=== PATIENT | female | born 1940 | race Caucasian/White ===

== ENCOUNTER 2017-01-10 12:36 | Emergency (ER) | payer OTHER, MEDICARE ==
[~2017-01-10] VITALS: Ht 172.7 cm; Wt 68.0 kg
[~2017-01-10 12:36] MED LIST: ADVAIR 250-501 EACH IH; ALEVE220 M1 PO; ALEVE220 MG; ALLEGRA ALLERGY60 MG PO; ALLEGRA60 MG PO; ANASPAZ0.125 MG SUBLING; ASPIRIN EC81 M1 PO; AVELOX400 MG PO; B12INJ SUBQ; BACTROBAN15 GM TP; CIPRO500 MG PO; CIPROFLOXACIN500 M1 PO; CIPROFLOXACIN500 M3 PO; COLACE100 MG PO; D3 DOTS2000 UNIT PO; DOXYCYCLINE 10100 MG PO; ESTROPIPATE0.75 MG PO; FLAGYL500 MG PO; FLEXERIL PO; FUROSEMIDE 20 M20 MG PO; GABADONE CAPSU1 EACH PO; GABAPENTIN; HIGH BLOOD PRESSURE; HORMONE; LEVOTHYROXIN0.137 M1 PO; LISINOPRIL20 MG PO; MEDROL DOSPAK21 TA1 PO; MEDROL DOSPAK21 TAB PO; METFORMIN HCL500 MG PO; MIRALAX17 GM PO; NEURONTIN 300300 M1 PO; NORCO 5-325 TA1 EACH PO; PREDNISOLONE 5 M5 M1 PO; PREDNISONE 20 M20 MG PO; PRESERVISION A1 EAC2 PO; SYMBICORT80 MCG/4.1 INH; SYNTHROID112 MCG PO; TRAMADOL 50 MG50 MG PO; TUSSIONEX PENNKI1 ML PO; TYLENOL325 MG PO; ZOFRAN ODT4 MG PO; ZOFRAN4 MG PO; ZPAK PO
[2017-01-10 12:44] VITALS: BP 150/77
[2017-01-10] MEDS ORDERED: ALLOPURINOL 10100 M1 PO (12:55)
[2017-01-10] MEDS ORDERED: GLIMEPIRIDE1 MG PO (12:55)
[2017-01-10] MEDS ORDERED: LIPITOR10 MG PO (12:56)
[2017-01-10] MEDS ORDERED: PROVENTIL HFA6.7 G1 INH (13:39)
[2017-01-10] MEDS ORDERED: TUSSIONEX PENN473 ML PO (13:39)
== END 2017-01-10 14:04 | disposition home or self-care (01) ==
LOC: ER 12:36
DX: J32.8 Other chronic sinusitis (principal); J06.9 Acute upper respiratory infection, unspecified; Z98.890 Other specified postprocedural states; Z90.710 Acquired absence of both cervix and uterus; Z96.653 Presence of artificial knee joint, bilateral; J45.909 Unspecified asthma, uncomplicated; I10 Essential (primary) hypertension; Z87.442 Personal history of urinary calculi; Z90.49 Acquired absence of other specified parts of digestive tract; Z88.8 Allergy status to other drugs, medicaments and biological substances; Z88.5 Allergy status to narcotic agent; Z88.0 Allergy status to penicillin

== ENCOUNTER 2017-04-20 14:40 | Emergency (ER) | payer OTHER, MEDICARE ==
[~2017-04-20] VITALS: Ht 152.4 cm; Wt 72.6 kg
[~2017-04-20 14:40] MED LIST changes: +ALLOPURINOL 10100 M1 PO; +GLIMEPIRIDE1 MG PO; +LIPITOR10 MG PO; +PROVENTIL HFA6.7 G1 INH; +TUSSIONEX PENN473 ML PO
[2017-04-20] MEDS ORDERED: VITAMIN E400 UNIT PO (15:51)
[2017-04-20] MEDS ORDERED: NORFLEX100 MG PO (16:34)
[2017-04-20] MEDS ORDERED: HYDROCODONE-AP1 EAC6 PO (16:34)
[2017-04-20 17:07] VITALS: BP 148/58
== END 2017-04-20 17:19 | disposition home or self-care (01) ==
LOC: ER 14:40
DX: S49.91XA Unspecified injury of right shoulder and upper arm, initial encounter (principal); I10 Essential (primary) hypertension; J45.909 Unspecified asthma, uncomplicated; Z90.710 Acquired absence of both cervix and uterus; Z87.442 Personal history of urinary calculi; Z98.890 Other specified postprocedural states; Z96.653 Presence of artificial knee joint, bilateral; Z88.0 Allergy status to penicillin; Z88.5 Allergy status to narcotic agent; Z88.8 Allergy status to other drugs, medicaments and biological substances; W18.49XA Other slipping, tripping and stumbling without falling, initial encounter; Y93.89 Activity, other specified; Y92.89 Other specified places as the place of occurrence of the external cause; Y99.8 Other external cause status

== ENCOUNTER → 2017-10-25 | Outpatient (CLI) | payer OTHER ==
[~2017-10-25] VITALS: Ht 152.4 cm; Wt 80.7 kg
[~2017-10-25] MED LIST changes: +CENTRUM SILVER1 EAC4 PO; +HYDROCODONE-AP1 EAC6 PO; +NORFLEX100 MG PO; +TUMS PO; +VITAMIN E400 UNIT PO
[2017-10-25 09:41] VITALS: BP 190/87
[2017-10-25 11:34] LABS: ALBUMIN 3.8 g/dL (3.4-5.0); ANION GAP 8 mmol/L (7-16); BUN 13 mg/dL (7-18); CALCIUM 9.6 mg/dL (8.5-10.1); CHLORIDE 105 mmol/L (98-107); CHOLESTEROL 117 mg/dL (<200); CO2 28 mmol/L (21-32); CREATININE 1.1 mg/dL (0.6-1.0); GLUCOSE 133 mg/dL (74-106); HDL CHOLESTEROL 46 mg/dL (>40); LDL CHOLESTEROL 49 mg/dL (<100); MAGNESIUM 1.2 mg/dL (1.8-2.4); POTASSIUM 3.7 mmol/L (3.5-5.1); SGOT 20 U/L (15-37); SGPT 27 U/L (30-65); SODIUM 141 mmol/L (136-145); TC:HDL 2.5 Ratio (Not establshd); TOTAL BILIRUBIN 0.3 mg/dL (<0.1-1.0); TOTAL PROTEIN 7.3 g/dL (6.4-8.2); TRIGLYCERIDE 114 mg/dL (<150); VLDL 23 mg/dL (<40)
[2017-10-25 12:08] LABS: TSH 2.97 uIU/mL (0.358-3.740)
[2017-10-26 02:09] LABS: GLYCOHEMOGLOBIN (HGB A1C) 7.3 % (4.8-5.6)
== END ==
LOC: SEN 09:02
PROVIDERS: Registered Nurse
DX: I12.9 Hypertensive chronic kidney disease with stage 1 through stage 4 chronic kidney disease, or unspecified chronic kidney disease (principal); E11.9 Type 2 diabetes mellitus without complications; N18.9 Chronic kidney disease, unspecified; E03.9 Hypothyroidism, unspecified; E78.5 Hyperlipidemia, unspecified

== ENCOUNTER 2018-08-13 08:47 | Inpatient (IN) | payer OTHER ==
[~2018-08-13] VITALS: Ht 152.4 cm; Wt 78.5 kg
--- NOTE | ~2018-08-13 | HC ---
[facility] [place] [address] [place] [address] CONSULTATION Name: CORIE GOLDMAN Room #: 221-P ADM IN M.R.#: [id number] Admission: 08/13/18 Attend Phys: Edilberto Herring MD Discharge: Date of : 36 Report #: [id number] THIS REPORT FOR: //name// CC: Edilberto Guardado ENDOCRINE CONSULTATION Patient of Dr. Daisy Guardado. ATTENDING PHYSICIAN: Edilberto Herring MD This dictation will be done in a problem-oriented fashion. SUBJECTIVE: A 77-year-old white female with a variety of medical problems, admitted for confusion and as the patient states her family thought she may have suffered a stroke and the patient has a variety of medical conditions, specifically she has a long history of hypothyroidism. She does not remember how long she has had this disorder or anything to do with her therapy. She readily admits, however, that she has not taken her thyroid replacement for many weeks and possibly many months. She offers no explanation for why this has not been taken. It apparently has not been followed up with thyroid function studies at her PCP's office, but was detected upon evaluation in the Emergency Department. Otherwise, there is no pertinent thyroid history available at this time. OBJECTIVE: LABORATORY DATA: As per chart. TSH 140. Free T4 is pending, which will certainly also indicate significant hypothyroidism when that result is available. PHYSICAL EXAMINATION: A thin 77-year-old white female, in no acute distress. The patient is alert and oriented x 3. She is able to answer some but limited medical questions. She is afebrile, heart rate 70 and regular, blood pressure 160/90. Skin is warm and moist and slightly doughy. The thyroid is difficult to palpate, but appears within normal limits. Deep tendon reflexes show slight depression bilaterally. The remainder of the exam is euthyroid. ASSESSMENT: Hypothyroidism of unknown etiology. The patient has significant laboratory abnormalities obviously due to the fact that she has not taken her thyroid replacement for an extended period of time. In addition, the patient does ingest calcium carbonate in the form of Tums on a p.r.n. basis and may have altered her thyroid hormone absorption by taking these within 2 hours before or after her thyroid hormone administration. This is, however, an extremely limited effect compared to the total absence of replacement. [address] [address] CONSULTATION Name: CORIE GOLDMAN Room #: 221-P [facility] IN M.R.#: [id number] Admission: 08/13/18 Attend Phys: Edilberto Herring MD Discharge: Date of : 36 Report #: [id number] PLAN: 1. I have discussed all the above with the patient and reviewed how important it is to take appropriate dose of replacement daily separate from calcium, iron, vitamins, etc., or other conflicting substances. It will be 6 weeks before thyroid function can be reassessed accurately and appropriately and dosage readjusted if needed at that time. 2. I have discussed with the patient appropriate followup to make sure that a thyroid hormone is initiated on a consistent basis and is not again inappropriately deleted. Thank you very much for this consultation. I will continue to follow the patient with you for evaluation and management of thyroid disease. <ELECTRONICALLY SIGNED> By: Manuel Serrano MD 08/15/18 1141 [id number] Manuel Serrano MD /nt
--- NOTE | ~2018-08-13 | HC ---
[facility] [address] [place] [address] CONSULTATION Name: CORIE GOLDMAN Room #: 221-P ADM IN M.R.#: [id number] Admission: 08/13/18 Attend Phys: Edilberto Herring MD Discharge: Date of : 36 Report #: [id number] THIS REPORT FOR: //name// CC: Edilberto Guardado DATE OF SERVICE: 08/14/2018 HISTORY OF PRESENT ILLNESS: The patient is a 77-year-old white female with a prior history of hypertension, hyperlipidemia, diabetes mellitus, COPD, hypothyroidism, fibromyalgia, recent diagnosis of lichen planus presented to [facility] Emergency Department with multiple complaints of confusion, weakness, slurred speech. She had been at her Dermatology office for biopsies. She was admitted with the confusion. CT of the head was negative, was noted to have a urinary tract infection, continuing with Rocephin. Follow sensitivities and cultures. She also had some hypokalemia 3.2, being supplemented. She has hypertension. We are seeing her in rehabilitation medicine consultation. Geriatric has been involved as well. PAST MEDICAL HISTORY: As noted above. ALLERGIES: Multiple including ALPRAZOLAM, MEPERIDINE, MORPHINE, PENICILLIN, THEOPHYLLINE. SOCIAL HISTORY: Premorbidly ambulated without assistive devices, but did furniture walk. She lives in her own home, still drives a car. No recent auto accidents were noted, was able to complete ADLs independently. Denied any recent falls at home. MEDICATIONS: Please see the full medication listing. This is noted to have include vitamins, herbals, and supplements. HABITS: Nonsmoker, no history of alcohol abuse. Lives with spouse. Please see the above. PAST MEDICAL HISTORY: Includes as well heart disease, hypertension, lung disease, autoimmune disorder as noted above. REVIEW OF SYSTEMS: No current complaints of chest pain, shortness of breath or abdominal discomfort. PHYSICAL EXAMINATION: GENERAL: A 77-year-old white female, pleasant, in no obvious distress. VITAL SIGNS: Last recorded temperature 97.2, pulse 70, respirations 17, blood pressure 162/90. EXTREMITIES: Functional range of motion of the upper and lower extremities. [address] [address] CONSULTATION Name: CORIE GOLDMAN Room #: 221-P [facility] IN ..#: [id number] Admission: 08/13/18 Attend Phys: Edilberto Herring MD Discharge: Date of : 36 Report #: [id number] Strength is a grade 3+ to 4-/5. DTRs are trace to 1. She does need some cues. She is able to get up with the walker, needing close standby assistance for short distance ambulation into the bathroom. Therapy evaluations are continuing. ASSESSMENT: A 77-year-old white female with the following problem list: 1. Acute mental status changes, apparently secondary to urinary tract infection. 2. Hypokalemia. 3. Urinary tract infection. 4. Acute renal insufficiency. 5. Electrolyte abnormalities. 6. Hypertension. 7. Diabetes mellitus. 8. Chronic obstructive pulmonary disease. 9. History of fibromyalgia. 10. Coronary artery disease. 11. Bladder prolapse. PLAN: Therapy evaluations are continuing. It is my understanding that the patient has in a transplant for which our re[facility] is out of network. Case management will need to assist and at this point would need to look at other rehab/therapy options as she further medically stabilizes. We will be glad to follow along with you. By: 1331 0035 Manuel Fields MD /PMT
--- NOTE | ~2018-08-13 | EKG ---
[place] [address] [facility] [place] [address] ELECTROCARDIOGRAM REPORT Name: CORIE GOLDMAN Room #: [facility]#: [id number] Admission: 08/13/18 Attend Phys: Discharge: Date of : 36 Report #: [id number] THIS REPORT FOR: //name// [facility] ED Test Date: 2018-08-13 Test Time: 09:19:08 Pat Name: CORIE GOLDMAN Department: Room: Gender: F Manager Financial: : 1940 Requested By: Geeta Schmidt Order Number: [id number] MD: Piter Ferrell Measurements Intervals [place] Rate: 83 P: 62 MD: 212 QRS: 15 QRSD: 116 T: 27 QT: 378 QTc: 445 Interpretive Statements Sinus rhythm Ventricular premature complex Nonspecific intraventricular conduction delay Low voltage, precordial leads Compared to ECG 12/24/2012 13:44:06 Electronically Signed On 08-13-2018 11:16:48 ALUMINUM SIDING INSTALLER by Piter Ferrell [email or web address] <ELECTRONICALLY SIGNED> By: Piter Ferrell MD 08/13/18 1116 D: [id number] 8 Piter Ferrell MD /MARICEL
[2018-08-13 08:48] VITALS: BP 174/90
[2018-08-13 09:33] LABS: ABSOLUTE NEUTROPHILS 6.5 thou/uL (1.4-8.2); BASOPHILS 1.1 % (0.0-2.0); EOSINOPHILS 3.1 % (0.0-3.0); HEMATOCRIT 42.5 % (37.0-47.0); HEMOGLOBIN 14.6 gm/dL (12.0-15.0); LYMPHOCYTES 21.9 % (24.0-44.0); MCH 32.5 pg (26.0-34.0); MCHC 34.4 g/dL (28.0-37.0); MCV 94.2 fL (80.0-100.0); PLATELET COUNT 261 thou/uL (150-400); POLYS 67.9 % (36.0-66.0); RBC 4.51 mil/uL (4.20-5.00); RDW 12.9 % (10.5-14.5); WBC 9.6 thou/uL (4.0-11.0)
[2018-08-13 09:50] LABS: ANION GAP 11 mmol/L (7-16); BUN 23 mg/dL (7-18); CALCIUM 10.6 mg/dL (8.5-10.1); CHLORIDE 100 mmol/L (98-107); CO2 27 mmol/L (21-32); CREATININE 1.6 mg/dL (0.6-1.0); GLUCOSE 165 mg/dL (74-106); POTASSIUM 3.2 mmol/L (3.5-5.1); SODIUM 138 mmol/L (136-145)
[2018-08-13 10:04] LABS: ALBUMIN 4.3 g/dL (3.4-5.0); SGOT 57 U/L (15-37); SGPT 48 U/L (30-65); TOTAL BILIRUBIN 0.3 mg/dL (<0.1-1.0); TOTAL PROTEIN 8.3 g/dL (6.4-8.2); TROPONIN-I <0.06 ng/mL (<0.06)
[2018-08-13 10:19] LABS: URINE BILIRUBIN NEGATIVE (Negative); URINE BLOOD TRACE (Negative); URINE CLARITY CLEAR; URINE COLOR YELLOW; URINE GLUCOSE-RANDOM* NEGATIVE (Negative); URINE KETONES NEGATIVE (Negative); URINE NITRITE-REFLEX NEGATIVE (Negative); URINE PROTEIN (DIPSTICK) NEGATIVE (Negative); URINE SPECIFIC GRAVITY 1.015 (1.005-1.035); URINE UROBILINOGEN 0.2 E.U./dl (0.2-1.0)
[2018-08-13 10:26] LABS: URINE LEUKOCYTES-REFLEX 2+ (Negative)
[2018-08-13 10:51] LABS: CASTS None Seen /LPF (None Seen); CRYSTALS None Seen /LPF (None Seen); SQUAMOUS 4-10 Moderate /LPF (0-3); URINE RBC 0-2 Rare /HPF (0-2)
[2018-08-13] MEDS ORDERED: DIFLUCAN200 MG PO (11:19)
[2018-08-13] MEDS ORDERED: LOSARTAN POTASS50 MG PO (11:19)
[2018-08-13] MEDS ORDERED: ALLOPURINOL 10100 M1 PO (11:19)
[2018-08-13 13:47] LABS: FOLIC ACID 18.1 ng/mL (8.6-58.9)
[2018-08-13 14:03] VITALS: BP 143/68
[2018-08-13 14:21] LABS: TSH 140.407 uIU/mL (0.358-3.740)
[2018-08-13 14:33] VITALS: BP 143/68
[2018-08-13 15:03] VITALS: BP 153/97
[2018-08-13 21:48] VITALS: BP 140/76
[2018-08-14 07:08] LABS: ABSOLUTE NEUTROPHILS 3.8 thou/uL (1.4-8.2); BASOPHILS 1.4 % (0.0-2.0); EOSINOPHILS 4.2 % (0.0-3.0); HEMATOCRIT 38.5 % (37.0-47.0); HEMOGLOBIN 13.1 gm/dL (12.0-15.0); MCH 32.2 pg (26.0-34.0); MCHC 34.1 g/dL (28.0-37.0); MCV 94.3 fL (80.0-100.0); MONOCYTES 6.5 % (1.0-8.0); PLATELET COUNT 222 thou/uL (150-400); POLYS 53.9 % (36.0-66.0); RBC 4.08 mil/uL (4.20-5.00); RDW 13.1 % (10.5-14.5); WBC 7.1 thou/uL (4.0-11.0)
[2018-08-14 07:21] LABS: CALCIUM 9.5 mg/dL (8.5-10.1); CREATININE 1.5 mg/dL (0.6-1.0); MAGNESIUM 1.2 mg/dL (1.8-2.4); POTASSIUM 3.7 mmol/L (3.5-5.1)
[2018-08-14 08:24] VITALS: BP 162/90
[2018-08-14 22:09] VITALS: BP 152/81
[2018-08-15 09:38] LABS: HEMATOCRIT 39.3 % (37.0-47.0); HEMOGLOBIN 13.3 gm/dL (12.0-15.0); MCH 32.1 pg (26.0-34.0); MCHC 33.7 g/dL (28.0-37.0); MCV 95.1 fL (80.0-100.0); RBC 4.13 mil/uL (4.20-5.00); RDW 13.4 % (10.5-14.5); WBC 7.4 thou/uL (4.0-11.0)
[2018-08-15 09:47] LABS: CALCIUM 9.3 mg/dL (8.5-10.1); CREATININE 1.3 mg/dL (0.6-1.0); MAGNESIUM 1.4 mg/dL (1.8-2.4); POTASSIUM 3.8 mmol/L (3.5-5.1)
[2018-08-15 19:17] VITALS: BP 166/90
[2018-08-16 07:01] LABS: HEMATOCRIT 39.8 % (37.0-47.0); HEMOGLOBIN 13.8 gm/dL (12.0-15.0); MCH 32.8 pg (26.0-34.0); MCHC 34.7 g/dL (28.0-37.0); MCV 94.7 fL (80.0-100.0); RBC 4.2 mil/uL (4.20-5.00); RDW 13.1 % (10.5-14.5)
[2018-08-16 07:13] LABS: CALCIUM 9.5 mg/dL (8.5-10.1); CREATININE 1.3 mg/dL (0.6-1.0); POTASSIUM 4.2 mmol/L (3.5-5.1)
[2018-08-16 07:30] VITALS: BP 158/85
[2018-08-16 20:13] VITALS: BP 189/91
[2018-08-17 07:31] LABS: HEMOGLOBIN 14.2 gm/dL (12.0-15.0); MCHC 33.9 g/dL (28.0-37.0); MCV 97.4 fL (80.0-100.0); RBC 4.31 mil/uL (4.20-5.00); RDW 13.2 % (10.5-14.5); WBC 10.4 thou/uL (4.0-11.0)
[2018-08-17 07:35] LABS: CALCIUM 9.6 mg/dL (8.5-10.1); CREATININE 1.2 mg/dL (0.6-1.0); MAGNESIUM 1.6 mg/dL (1.8-2.4); POTASSIUM 4.6 mmol/L (3.5-5.1)
[2018-08-17 07:42] VITALS: BP 155/96
[2018-08-17 19:22] VITALS: BP 155/81
[2018-08-18 07:41] VITALS: BP 164/86
[2018-08-18 08:19] LABS: HEMATOCRIT 39.7 % (37.0-47.0); HEMOGLOBIN 13.8 gm/dL (12.0-15.0); MCH 32.8 pg (26.0-34.0); MCHC 34.8 g/dL (28.0-37.0); MCV 94.2 fL (80.0-100.0); RBC 4.21 mil/uL (4.20-5.00); RDW 13.1 % (10.5-14.5); WBC 8.9 thou/uL (4.0-11.0)
[2018-08-18 08:26] LABS: CALCIUM 10.2 mg/dL (8.5-10.1); CREATININE 1.3 mg/dL (0.6-1.0); MAGNESIUM 1.5 mg/dL (1.8-2.4)
[2018-08-18] MEDS ORDERED: ACIDOPHILUS1 EAC4 PO (11:22)
[2018-08-18] MEDS ORDERED: B-12500 MCG PO (11:23)
[2018-08-18] MEDS ORDERED: SYNTHROID137 MC1 PO (11:23)
[2018-08-18 12:10] VITALS: BP 164/86
== END 2018-08-18 13:47 | disposition home health service (06) | DRG 689 ==
LOC: ER 08:47 → SICU 11:08 → EROBS 11:08 → 4E 14:38 → SICU 21:32
PROVIDERS: Internal Medicine; Nurse Practitioner; Physician Assistant
DX: N39.0 Urinary tract infection, site not specified (principal); N17.0 Acute kidney failure with tubular necrosis; G93.40 Encephalopathy, unspecified; E03.9 Hypothyroidism, unspecified; B37.3 Candidiasis of vulva and vagina; R26.2 Difficulty in walking, not elsewhere classified; I10 Essential (primary) hypertension; E78.5 Hyperlipidemia, unspecified; J44.9 Chronic obstructive pulmonary disease, unspecified; E87.6 Hypokalemia; E11.40 Type 2 diabetes mellitus with diabetic neuropathy, unspecified; I25.10 Atherosclerotic heart disease of native coronary artery without angina pectoris; N81.10 Cystocele, unspecified; Z96.653 Presence of artificial knee joint, bilateral; M19.90 Unspecified osteoarthritis, unspecified site; M81.0 Age-related osteoporosis without current pathological fracture; E83.42 Hypomagnesemia; E53.8 Deficiency of other specified B group vitamins; Z95.1 Presence of aortocoronary bypass graft; Z88.6 Allergy status to analgesic agent; Z88.0 Allergy status to penicillin; Z88.8 Allergy status to other drugs, medicaments and biological substances; Z90.49 Acquired absence of other specified parts of digestive tract; Z87.891 Personal history of nicotine dependence; Z79.82 Long term (current) use of aspirin; Z79.899 Other long term (current) drug therapy
CPT/HCPCS: 15002

== ENCOUNTER 2020-05-26 15:37 | Emergency (ER) | payer OTHER ==
[~2020-05-26] VITALS: Ht 152.4 cm; Wt 74.8 kg
[~2020-05-26 15:37] MED LIST changes: +ACIDOPHILUS1 EAC4 PO; +B-12500 MCG PO; +DIFLUCAN200 MG PO; +LOSARTAN POTASS50 MG PO; +SYNTHROID137 MC1 PO
[2020-05-26 16:50] LABS: URINE BILIRUBIN NEGATIVE (Negative); URINE BLOOD NEGATIVE (Negative); URINE CLARITY CLEAR; URINE COLOR YELLOW; URINE GLUCOSE-RANDOM* NEGATIVE (Negative); URINE KETONES NEGATIVE (Negative); URINE NITRITE-REFLEX NEGATIVE (Negative); URINE PROTEIN (DIPSTICK) 1+ (Negative); URINE SPECIFIC GRAVITY 1.015 (1.005-1.035); URINE UROBILINOGEN 0.2 E.U./dl (0.2-1.0)
[2020-05-26 16:52] LABS: URINE LEUKOCYTES-REFLEX 2+ (Negative)
[2020-05-26 16:54] LABS: ANION GAP 13 mmol/L (7-16); BUN 15 mg/dL (7-18); CALCIUM 8.2 mg/dL (8.5-10.1); CHLORIDE 99 mmol/L (98-107); CO2 24 mmol/L (21-32); CREATININE 0.9 mg/dL (0.6-1.0); GLUCOSE 159 mg/dL (74-106); POTASSIUM 3.9 mmol/L (3.5-5.1); SODIUM 136 mmol/L (136-145)
[2020-05-26 17:03] LABS: ALBUMIN 2.9 g/dL (3.4-5.0); SGOT 44 U/L (15-37); SGPT 20 U/L (30-65); TOTAL BILIRUBIN 0.6 mg/dL (0.2-1.0); TOTAL PROTEIN 7.5 g/dL (6.4-8.2); TROPONIN-I <0.06 ng/mL (<0.06)
[2020-05-26 17:12] LABS: SQUAMOUS 0-3 Few /LPF (0-3)
[2020-05-26 17:13] LABS: CASTS None Seen /LPF (None Seen); CRYSTALS None Seen /LPF (None Seen); URINE RBC None Seen /HPF (0-2)
[2020-05-26 18:32] LABS: ABSOLUTE NEUTROPHILS 3.5 thou/uL (1.4-8.2); BASOPHILS 0.2 % (0.0-2.0); HEMATOCRIT 38.4 % (37.0-47.0); HEMOGLOBIN 13.2 gm/dL (12.0-15.0); LYMPHOCYTES 23.4 % (24.0-44.0); MCH 32.1 pg (26.0-34.0); MCHC 34.5 g/dL (28.0-37.0); MCV 93.1 fL (80.0-100.0); PLATELET COUNT 217 thou/uL (150-400); POLYS 64.4 % (36.0-66.0); RBC 4.13 mil/uL (4.20-5.00); RDW 12.5 % (10.5-14.5); WBC 5.4 thou/uL (4.0-11.0)
[2020-05-26 18:42] LABS: APTT 31.7 Seconds (24.5-32.8); INR 1.1; PROTIME 10.8 Seconds (9.3-11.4)
[2020-05-26] MEDS ORDERED: MEDROLDOSEPACK PO (19:33)
[2020-05-26] MEDS ORDERED: AZITHROMYCIN500 MG PO (19:33)
[2020-05-26] MEDS ORDERED: LEVOFLOXACIN750 MG PO (19:44)
[2020-05-26 21:34] VITALS: BP 137/61
--- NOTE | 2020-05-27 08:46 | EKG ---
[facility] [place] [address] [address] [place] [address] ELECTROCARDIOGRAM REPORT Name: CORIE GOLDMAN [id number] Admission: 05/26/20 Attend Phys: Discharge: 05/26/20 Date of : 36 Report #: [id number] THIS REPORT FOR: cc: Daisy Guardado MD,Daisy Andrews,Cal YIN [facility] ~ THIS REPORT FOR: //name// [facility] ED Test Date: 2020-05-26 Test Time: 17:41:05 Pat Name: CORIE GOLDMAN Department: Room: Gender: F Single End Sewer: Mcihelle : 1940 Requested By: Lawanda Arnold Order Number: [id number] MD: Cal Andrews Measurements Intervals [place] Rate: 87 P: 58 WI: 176 QRS: -6 QRSD: 98 T: 3 QT: 374 QTc: 450 Interpretive Statements Sinus rhythm Compared to ECG 08/13/2018 09:19:08 Ventricular premature complex(es) no longer present Intraventricular conduction delay no longer present Electronically Signed On 05-27-2020 8:46:32 CDT by Cal Andrews [email or web address] <ELECTRONICALLY SIGNED> By: Cal Andrews MD, FAC 05/27/20 [id number] Cal Andrews MD, [facility] /EPI
== END 2020-05-26 21:35 | disposition home or self-care (01) ==
LOC: ER 15:37
PROVIDERS: Nurse Practitioner Family
DX: U07.1 COVID-19 (principal); M19.90 Unspecified osteoarthritis, unspecified site; M79.7 Fibromyalgia; I25.10 Atherosclerotic heart disease of native coronary artery without angina pectoris; J44.9 Chronic obstructive pulmonary disease, unspecified; E03.9 Hypothyroidism, unspecified; E11.9 Type 2 diabetes mellitus without complications; Z79.899 Other long term (current) drug therapy; Z79.82 Long term (current) use of aspirin; Z88.8 Allergy status to other drugs, medicaments and biological substances; Z88.5 Allergy status to narcotic agent; Z88.0 Allergy status to penicillin

== ENCOUNTER 2021-05-07 09:31 | Emergency (ER) | payer OTHER, MEDICARE ==
[~2021-05-07] VITALS: Ht 152.4 cm; Wt 68.0 kg
[~2021-05-07 09:31] MED LIST changes: +AZITHROMYCIN500 MG PO; +LEVOFLOXACIN750 MG PO; +MEDROLDOSEPACK PO
[2021-05-07 10:22] LABS: URINE BILIRUBIN NEGATIVE (Negative); URINE BLOOD NEGATIVE (Negative); URINE CLARITY SL CLOUDY; URINE COLOR YELLOW; URINE GLUCOSE-RANDOM* NEGATIVE (Negative); URINE KETONES NEGATIVE (Negative); URINE NITRITE-REFLEX NEGATIVE (Negative); URINE PROTEIN (DIPSTICK) NEGATIVE (Negative); URINE UROBILINOGEN 0.2 E.U./dl (0.2-1.0)
[2021-05-07 10:23] LABS: URINE LEUKOCYTES-REFLEX 3+ (Negative)
[2021-05-07 10:31] LABS: SQUAMOUS >10 Many /LPF (0-3); URINE WBC-REFLEX >25 Many /HPF (0-5)
[2021-05-07 10:32] LABS: BACTERIA-REFLEX 1-9 Few /HPF (None Seen); CASTS None Seen /LPF (None Seen); CRYSTALS None Seen /LPF (None Seen); URINE RBC 1-2 Rare /HPF (NONE SEEN)
[2021-05-07] MEDS ORDERED: [UNRECOGNIZED DRUG - OTHER] VAG (11:00)
[2021-05-07] MEDS ORDERED: NYSTATIN-TRIAMC15 GM TOP (11:00)
[2021-05-07 11:14] VITALS: BP 169/66
== END 2021-05-07 11:15 | disposition home or self-care (01) ==
LOC: ER 09:31
PROVIDERS: Emergency Medicine
DX: B37.3 Candidiasis of vulva and vagina (principal); M19.90 Unspecified osteoarthritis, unspecified site; J44.9 Chronic obstructive pulmonary disease, unspecified; E03.9 Hypothyroidism, unspecified; E11.9 Type 2 diabetes mellitus without complications; Z79.2 Long term (current) use of antibiotics; Z79.82 Long term (current) use of aspirin; Z79.899 Other long term (current) drug therapy; Z88.0 Allergy status to penicillin; Z88.1 Allergy status to other antibiotic agents; Z88.6 Allergy status to analgesic agent